=== PATIENT | female | born 1940 | race Caucasian/White ===

== ENCOUNTER 2022-11-14 21:31 | Inpatient (IN) | payer MEDICARE, BC ==
[2022-11-14] VITALS (47 sets, daily range): BP systolic 117; BP diastolic 65; PULSE 88; TEMP 97.3; O2SAT 94–100
[~2022-11-14] VITALS: Ht 170.2 cm; Wt 107.9 kg
[~2022-11-14 21:31] MED LIST: AMLODIPINE10 MG PO; ENALAPRIL20 MG PO; GLYBURIDE5 MG PO; ISOSORBIDE30 MG PO; LANTUS100 U/ML; LASIX40 MG PO; METFORMIN500 MG PO; NITROGLYCERIN0.4 MG SL; POTASSIUM20 MEQ PO; SIMVASTATIN40 MG PO; TOPROL XL100 MG PO
--- NOTE | 2022-11-14 22:31 | NUR ---
REPORT RECEIVED FROM DURGA FIERRO [place]. PT ALREADY IN ROUTE TO THIS ICU VIA EMS.
[2022-11-14] MEDS ORDERED: ELIQUIS 5MG PO (22:45)
[2022-11-14] MEDS ORDERED: SYNTHROID0.05 MG/TA PO (22:45)
[2022-11-14] MEDS ORDERED: BUMEX2 MG PO (22:45)
[2022-11-14] MEDS ORDERED: CELEBREX 200MG200 MG PO (22:45)
[2022-11-14] MEDS ORDERED: GLUCOTROL 5M5 MG/TAB PO (22:46)
[2022-11-14] MEDS ORDERED: AMBIEN 5MG TABLE5 MG PO (22:46)
[2022-11-14] MEDS ORDERED: PRINIVIL20 MG PO (22:46)
[2022-11-14] MEDS ORDERED: ALDACTONE 25MG25 M1 PO (22:46)
[2022-11-14] MEDS ORDERED: NOVOLOG FLEX100 U/ML SQ (22:47)
[2022-11-14] MEDS ORDERED: PRAVACHOL 40MG40 MG PO (22:47)
[2022-11-14] MEDS ORDERED: BASAGLAR K100 UNIT/1 SQ (22:47)
--- NOTE | 2022-11-14 23:13 | NUR ---
PT ARRIVED TO UNIT VIA EMS. PT ARRIVED ON NS 100ML/HR, ROOM AIR AND WITH SANCHEZ CATHETER IN PLACE FROM TRANSFERING FACILITY. PT ALERT TO SELF AND SITUATION, BUT NOT TO TIME OR PLACE. PT ABLE TO ANSWER SOME QUESTIONS, BUT MOSTLY A POOR HISTORIAN REPLYING TO MOST PMH QUESTIONS WITH "I DON'T KNOW". PT WITH RT PUPIL 3MM AND NON-REACTIVE TO LIGHT, LT PUPIL 2MM SLUGGISH REACTION TO LIGHT. PT WITH COCCYX AREA NON-BLANCHABLE. PT WITH C/O CHRONIC LOWER BACK PAIN 03/29. PT ORIENTED TO ROOM AND CALL LIGHT WITHIN REACH.
[2022-11-15] VITALS (1225 sets, daily range): BP systolic 92–146; BP diastolic 46–109; PULSE 71–98; TEMP 97.5–97.9; O2SAT 67–100
[2022-11-15 00:10] LABS: MUCOUS Present (NOT PRESENT); SQUAMOUS EPITHELIAL 0-2 /hpf (0-10); URINE BACTERIA Rare /hpf (NONE SEEN)
[2022-11-15 00:12] LABS: URINE APPEARANCE Clear (CLEAR/HAZY); URINE BLOOD TRACE-INTACT (NEGATIVE); URINE COLOR Yellow (YELLOW); URINE GLUCOSE Negative (NEGATIVE); URINE KETONE Negative (NEGATIVE); URINE NITRATE Negative (NEGATIVE); URINE PROTEIN(semi-quant) Negative (NEGATIVE); URINE UROBILINOGEN 0.2 E.U/dL (0.2-1.0)
[2022-11-15 00:31] LABS: COLLECTION METHOD CLEAN CATCH
[2022-11-15 00:38] LABS: OSMOLALITY-URINE random 345 Osm/kg (50-1200)
[2022-11-15 00:47] LABS: INR 1.9 (0.8-3.0); PROTHROMBIN TIME 21.4 SECONDS (9.7-12.8)
[2022-11-15 00:48] LABS: GASTROCCULT POSITIVE; pH GASTRIC CONTENTS 3
[2022-11-15 01:08] LABS: CALCIUM 10.2 mg/dL (8.4-10.2); PHOSPHOROUS 7.6 mg/dL (2.3-4.7)
[2022-11-15 01:18] LABS: CREATININE, serum 3.96 mg/dL (0.57-1.11); FRACTIONAL EXCRETION OF NA+ 4.82 %
[2022-11-15 01:25] LABS: TSH w REFLEX 1.669 uIU/mL (0.350-4.940)
[2022-11-15 01:27] LABS: TROPONIN-I 0.184 ng/mL (0.00-0.033)
[2022-11-15 04:18] LABS: BASO # 0.1 K/mm3 (0.0-0.2); BASO % 0.6 % (0.0-2.0); EOS # 0.1 K/mm3 (0.0-0.7); GRAN # 6.6 K/mm3 (1.4-6.5); GRAN % 82.1 % (42.2-75.2); HEMOGLOBIN 12.2 g/dl (12.5-16.0); LYMPH # 0.7 K/mm3 (1.2-3.4); LYMPH % 8.8 % (20.0-51.0); MEAN CELL VOLUME 76 fl (80.0-100.0); MEAN CORPUSCULAR HEMOGLOBIN 25 pg (27-31); MEAN CORPUSCULAR HGB CONC 33 g/dl (33.0-37.0); MEAN PLATELET VOLUME 10.6 fl (7.4-10.4); MONO # 0.6 K/mm3 (0.1-0.6); MONO % 7.2 % (1.7-9.3); PLATELET COUNT 191 K/mm3 (130-400); RED BLOOD COUNT 4.86 M/mm3 (4.10-5.30); REDCELL DISTRIBUTION WIDTH-CV 18.6 % (11.5-14.5)
[2022-11-15 04:47] LABS: CALCIUM 9.4 mg/dL (8.4-10.2); CREATININE, serum 3.86 mg/dL (0.57-1.11); POTASSIUM 5.4 mmol/L (3.5-4.5)
[2022-11-15 09:54] LABS: ANION GAP 17 mmol/L (7-16); CALCIUM 9.5 mg/dL (8.4-10.2); CHLORIDE 106 mmol/L (98-107); CREATININE, serum 3.83 mg/dL (0.57-1.11); POTASSIUM 5.4 mmol/L (3.5-4.5); SODIUM 137 mmol/L (136-145)
[2022-11-15 09:57] LABS: BLOOD UREA NITROGEN > 125 mg/dL (10-20); GLUCOSE 58 mg/dL (70-99)
[2022-11-15 09:58] LABS: CARBON DIOXIDE 14 mmol/L (23-31)
--- NOTE | 2022-11-15 11:38 | NUR ---
SW met with patient to complete intake. Patient resting up entering and daughter Ivon Lewis [phone] present at intake. Daughter is also appointed as DPOA/HC. Patient lives alone, utilizes a walker, independent with ADL's, and does not utilize HH service at this time. PCP is Dr. Moreno, pharmacy is [facility]. DC plan is to return home. Patient may benefit from HH services upon DC. SW will continue to follow. DC plan: SNF vs Home Health
--- NOTE | 2022-11-15 21:30 | NUR ---
PT HAD BEEN SLEEPING SOUNDLY IN BED UNTIL THIS TIME. NOW AWAKE AND ALERT TO SELF, PLACE, YEAR. REITERATED SITATION AND PLAN OF CARE FOR EVENING AND TOMORROW. CARDIAC WORKUP PLANNED FOR WEDNESDAY, INCLUDING ECHO AND STRESS TEST. PT WILL BE NPO AFTER MIDNIGHT. CURRENTLY DRINKING GRAPE JUICE. PT DENIES PAIN. HAS NO N/V, SOA, OR COMPLAINTS. WILL CONTINUE TO MONITOR.
[2022-11-16] VITALS (753 sets, daily range): BP systolic 95–135; BP diastolic 41–72; PULSE 65–94; TEMP 97.4–98; O2SAT 64–100
[2022-11-16 06:27] LABS: BASO # 0.1 K/mm3 (0.0-0.2); BASO % 0.7 % (0.0-2.0); EOS # 0.2 K/mm3 (0.0-0.7); GRAN # 5.1 K/mm3 (1.4-6.5); GRAN % 76.2 % (42.2-75.2); HEMOGLOBIN 11.7 g/dl (12.5-16.0); LYMPH # 0.9 K/mm3 (1.2-3.4); LYMPH % 12.9 % (20.0-51.0); MEAN CELL VOLUME 77 fl (80.0-100.0); MEAN CORPUSCULAR HEMOGLOBIN 25 pg (27-31); MEAN CORPUSCULAR HGB CONC 33 g/dl (33.0-37.0); MEAN PLATELET VOLUME 11.6 fl (7.4-10.4); MONO # 0.5 K/mm3 (0.1-0.6); MONO % 6.8 % (1.7-9.3); PLATELET COUNT 178 K/mm3 (130-400); RED BLOOD COUNT 4.64 M/mm3 (4.10-5.30); REDCELL DISTRIBUTION WIDTH-CV 18.9 % (11.5-14.5)
[2022-11-16 06:33] LABS: HEMATOCRIT 35.5 % (37.0-47.0)
[2022-11-16 06:49] LABS: CALCIUM 9.1 mg/dL (8.4-10.2); CREATININE, serum 3.48 mg/dL (0.57-1.11); POTASSIUM 5.3 mmol/L (3.5-4.5)
--- NOTE | 2022-11-16 07:26 | NUR ---
BEDSIDE REPORT RECEIVED FROM NIGHTSHIFT RNHARRIS. IV FLUID RATE VERIFIED. CALL LIGHT WITHIN PT REACH. WILL CONTINUE TO MONITOR.
--- NOTE | 2022-11-16 09:39 | NUR ---
RECEIVED REPORT FROM NIGHTSHIFT RNHARRIS. PATIENTS IV SITES AND FLUID RATE VERIFIED AT BEDSIDE REPORT. HEAD TO TOE ASSESSMENT COMPLETE. RENAL ULTRASOUND, VENOUS DOPPLER OF LEFT LOWER EXTREMITY, AND ECHO COMPLETED THIS MORNING. PATIENT TO UNDERGO LEXISCAN LATER THIS MORNING. PATIENT HAS 2 FAMILY MEMBERS VISITING THIS MORNING - ICU VISITING POLICY REVIEWED WITH BOTH FAMILY MEMBERS. PATIENT HAS NO COMPLAINTS OF PAIN THIS MORNING. CALL LIGHT WITHIN REACH. WILL CONTINUE TO MONITOR.
--- NOTE | 2022-11-16 11:14 | NUR ---
PATIENT OFF UNIT AT 1110 TO GET LEXISCAN COMPLETE. ACCOMPANIED BY NUCLEAR MEDICINE STAFF.
--- NOTE | 2022-11-16 12:45 | NUR ---
PATIENT RETURNED TO UNIT FROM [facility] ACCOMPANIED BY NUCLEAR MEDICINE STAFF. PATIENT HAD COMPLAINTS OF FEELING NAUSEOUS. MEDICATIONS ADMINISTERED PER EMAR. PATIENT ASSISTED WITH BED BATH, SHAMPOO CAP, AND CATHETER CARE. PATIENT BEDDING CHANGED. PATIENT REQUESTED TO SIT IN RECLINER AT THIS TIME. CALL LIGHT WITHIN REACH. WILL CONTINUE TO MONITOR.
--- NOTE | 2022-11-16 15:10 | NUR ---
Foil Cutter met with Patient at bedside to follow-up with her potential need for home health or half-way post discharge. SW provided [facility] approved providers for both and requested two choices to initiate referrals for services.
--- NOTE | 2022-11-16 19:27 | NUR ---
REPORT CALLED ON PATIENT TO MED/SURG FLOOR.
--- NOTE | 2022-11-17 01:34 | NUR ---
PATIENT ADMITTED TO THIS FLOOR IN ROOM 315 FROM THE ICU. SHE WAS ASSESSED AND GIVEN NIGHTLY MEDICATIONS. SHE STATES SHE WOULD LIKE A SLEEPING MEDICATION FOR TONIGHT, RIO VINCENT ORDERED FOR MELATONIN. GIVEN MELATONIN AND TYLENOL FOR BACK PAIN. CONTINUES ON ROCEPHIN FOR UTI. 1/2 NS RUNNING AT 200ML/HR, CREAT WAS 3.48 TODAY. LABS ORDERED FOR THE MORNING. NO DIARRHEA ON THIS FLOOR BUT DID HAVE A BOUT IN THE ICU WHICH WAS BLACK IN COLOR AND SOFT IN TEXTURE. SHE IS AOX4 AND PLEASANT TO SPEAK WITH. BED IN LOWEST POSITION. CALL LIGHT IN REACH.
[2022-11-17 04:06] VITALS: BP 127/54; PULSE 60; TEMP 97.5
[2022-11-17 07:09] LABS: CALCIUM 8.2 mg/dL (8.4-10.2); CREATININE, serum 2.71 mg/dL (0.57-1.11); POTASSIUM 5.1 mmol/L (3.5-4.5)
[2022-11-17 07:14] LABS: BASO # 0.1 K/mm3 (0.0-0.2); BASO % 0.7 % (0.0-2.0); EOS # 0.3 K/mm3 (0.0-0.7); EOS % 3.6 % (0.0-4.0); GRAN # 5.4 K/mm3 (1.4-6.5); GRAN % 79.3 % (42.2-75.2); HEMOGLOBIN 10.5 g/dl (12.5-16.0); LYMPH # 0.7 K/mm3 (1.2-3.4); LYMPH % 9.8 % (20.0-51.0); MEAN CELL VOLUME 76 fl (80.0-100.0); MEAN CORPUSCULAR HEMOGLOBIN 25 pg (27-31); MEAN CORPUSCULAR HGB CONC 33 g/dl (33.0-37.0); MEAN PLATELET VOLUME 11.2 fl (7.4-10.4); MONO # 0.4 K/mm3 (0.1-0.6); MONO % 6.3 % (1.7-9.3); PLATELET COUNT 149 K/mm3 (130-400); RED BLOOD COUNT 4.14 M/mm3 (4.10-5.30); REDCELL DISTRIBUTION WIDTH-CV 18.4 % (11.5-14.5)
[2022-11-17 07:15] LABS: HEMATOCRIT 31.6 % (37.0-47.0)
--- NOTE | 2022-11-17 07:22 | NUR ---
Shift assessment complete. Pt drowsey this AM. Oriented x4. Telementry on V paced, HR 76bpm. INT to RT forearm and periphrial line to LFT forearm w/ NS infusing @ 200ml/hr, no redness or drainage. coccyx red non blanchable w/ dressing CDI. Rogers catheter in place , urine clear pale yellow. Pt states LLE tender to touch, no redness or swelling. Pt declined any needs @ this time.
[2022-11-17 07:35] VITALS: BP 128/55; PULSE 63; TEMP 97.4
--- NOTE | 2022-11-17 09:05 | NUR ---
PATIENT IS AWAKE AND ALERT, RESTING IN BED WITH 2 FAMILY MEMBERS AT BEDSIDE. PATIENT DENEIS ANY NEEDS OR COMPLAITNS AT THIS TIME. SANCHEZ PATENT AND DRAINING. IVF INFUSING THROUGH LF IV.
[2022-11-17 10:58] VITALS: BP 149/51; PULSE 67; TEMP 97.6
[2022-11-17 15:49] VITALS: BP 126/42; PULSE 68; TEMP 97
--- NOTE | 2022-11-17 15:59 | NUR ---
Receiving And Processing Supervisor met with patient to follow up on discharge plan. Patient reviewed Medicare.gov list of SNFs and her preferences are 1) [facility] and 2) [facility]. STUART faxed referrals to both. [facility] left SW a message stating they will have to decline referral as they have no female beds available. STUART spoke with Dory at [facility] who advised they can accept tomorrow and are hoping for an 1130 apple picker if patient discharges. STUART contacted patient's daughter, Ivon who was at bedside for earlier discussion to update her on the above. Ivon is at bedside with patient now and advised they are agreeable to discharge to [facility]. Discharge Plan: [facility]F
--- NOTE | 2022-11-17 18:15 | NUR ---
PATIENT TELE REMOVED. BOTH IV WRAPPED FOR SHOWER. NITRO PATCH COVERED. PCT WITH PATIENT TO ASSIST.
--- NOTE | 2022-11-17 18:37 | NUR ---
PATIENT BACK IN BED FROM SHOWER. IVS, SANCHEZ AND NITRO PATCH ALL CLEAN DRY AND INTACT. TELE AND IV FLUID RECONNECTED. PATIENT RESTING IN BED, DENIES ANY NEEDS OR COMPLAINTS AT THIS TIME. CALL LIGHT WITH IN REACH BED ALARM ON.
[2022-11-17 19:46] VITALS: BP 125/53; PULSE 75; TEMP 97.7
[2022-11-18] VITALS: BP 102/49; PULSE 70; TEMP 97.6
--- NOTE | 2022-11-18 02:55 | NUR ---
PATIENT ASSESSED AND GIVEN NIGHTLY MEDICATIONS. 1/2 NS CONTINUES AT 100ML/HR. CREAT WAS 2.71 YESTERDAY. GETTING ROCEPHIN FOR UTI. POSSIBLE DISCHARGE TO [place] PER DAY SHIFT NURSE. CALL LIGHT IN REACH. BED IN LOWEST POSITION. NO BM'S THIS SHIFT THUS FAR.
[2022-11-18 03:45] VITALS: BP 135/44; PULSE 69; TEMP 98.2
[2022-11-18 07:01] LABS: BASO % 0.6 % (0.0-2.0); EOS # 0.2 K/mm3 (0.0-0.7); GRAN % 78.4 % (42.2-75.2); HEMOGLOBIN 10.2 g/dl (12.5-16.0); LYMPH # 0.7 K/mm3 (1.2-3.4); LYMPH % 10.7 % (20.0-51.0); MEAN CELL VOLUME 76 fl (80.0-100.0); MEAN CORPUSCULAR HEMOGLOBIN 26 pg (27-31); MEAN CORPUSCULAR HGB CONC 34 g/dl (33.0-37.0); MEAN PLATELET VOLUME 11.2 fl (7.4-10.4); MONO # 0.4 K/mm3 (0.1-0.6); MONO % 6.8 % (1.7-9.3); PLATELET COUNT 145 K/mm3 (130-400); RED BLOOD COUNT 3.96 M/mm3 (4.10-5.30); REDCELL DISTRIBUTION WIDTH-CV 18.5 % (11.5-14.5)
[2022-11-18 07:12] LABS: HEMATOCRIT 30.1 % (37.0-47.0)
[2022-11-18 07:16] LABS: CALCIUM 8.7 mg/dL (8.4-10.2); CREATININE, serum 2.33 mg/dL (0.57-1.11); POTASSIUM 4.9 mmol/L (3.5-4.5)
[2022-11-18 07:38] VITALS: BP 134/54; PULSE 79; TEMP 97.6
--- NOTE | 2022-11-18 07:40 | NUR ---
Shift assessment complete. Pt alert watching TV. Orianted x4. Telemaentry on V-paced HR 78bpm. BP 134/54 primary nurse notified. Nitro patch to the left upper chest. INT to the RT forearm and peripherial line to the LFT forearm infusing 1/2 NS @ 100ml/hr, no redness, swelling, or drainage. Rogers catheter in place, urine pale yellow and clear. Pt declines any needs at this time.
[2022-11-18] MEDS ORDERED: PRAVACHOL 40MG40 MG PO (08:18)
[2022-11-18] MEDS ORDERED: SYNTHROID0.05 MG/TA PO (08:18)
[2022-11-18] MEDS ORDERED: MELATIN 3 MG-11 TAB PO (08:19)
[2022-11-18] MEDS ORDERED: ASPIRIN E.C. 8181 MG PO (08:20)
[2022-11-18] MEDS ORDERED: SODIUM BICARBO650 MG PO (08:28)
[2022-11-18] MEDS ORDERED: NOVOLOG 100U100 U/M1 SQ (08:30)
[2022-11-18] MEDS ORDERED: AMBIEN 5MG TABLE5 MG PO (08:31)
[2022-11-18 11:12] VITALS: BP 113/53; PULSE 71; TEMP 97.5
--- NOTE | 2022-11-18 15:28 | NUR ---
Senior Energy Market Coordinator notified by Hospitalist that patient is ready for discharge to [facility]. SW spoke with Dory at [facility] and transport was set up for 1130. SW met with patient and patient's daughter, Ivon who is at bedside. SW presented IM form to patient who verbalized understanding and provided signature. SW placed form in chart and provided copy to patient. STUART was then later notified that Nephrology would like to keep patient another day. STUART updated [facility] and faxed clinical updates. STUART also updated patient and family. Discharge Plan: [facility]
[2022-11-18 16:31] VITALS: BP 126/52; PULSE 68; TEMP 97.9
[2022-11-18 20:00] VITALS: BP 131/47; PULSE 63; TEMP 97.4
[2022-11-18 21:10] LABS: ALBUMIN 2.7 gm/dL (3.4-4.8); CALCIUM 8.8 mg/dL (8.4-10.2); CREATININE, serum 2.33 mg/dL (0.57-1.11); PHOSPHOROUS 3.6 mg/dL (2.3-4.7); POTASSIUM 4.8 mmol/L (3.5-4.5)
--- NOTE | 2022-11-18 22:13 | NUR ---
THE PATIENT IS HAVING A ROUGH NIGHT. SHE STATES SHE IS VERY READY TO GO HOME AND IS TIRED OF BEING HERE. SHE STATES SHE DOESN'T WANT TO BE "POKED" ANYMORE. SHE DID HAVE LABS DRAWN THIS EVENING PER DR. WASHINGTON, HE WAS UPDATED ON THE RESULTS OF THOSE SOON THEY RESULTED. HE STATES THAT WITH THE RESULTS THIS BMP, THAT SHE SHOULD BE GOOD TO LEAVE TOMORROW. WILL ALSO INFORM KHALIF HAYES OF THIS DISCUSSION. NO OTHER CONCERNS AT THIS TIME.
[2022-11-19 04:53] VITALS: BP 122/59; PULSE 101; TEMP 97.6
[2022-11-19 07:59] VITALS: BP 112/84; PULSE 67; TEMP 97.5
[2022-11-19] MEDS ORDERED: APRESOLINE 25MG25 MG PO (08:55)
[2022-11-19] MEDS ORDERED: NITRO-DUR0.4 MG/PAT TD (08:55)
[2022-11-19] MEDS ORDERED: PROTONIX 40MG T40 MG PO (08:59)
[2022-11-19 10:29] VITALS: BP 112/84; PULSE 67; TEMP 97.5
--- NOTE | 2022-11-19 10:54 | NUR ---
Hospitalist notified Technical Translator that patient is ready for discharge today and Nehpro[facility]y has signed off. STUART faxed discharge orders to Dory at [facility]. Transport time set for 1030. STUART provided time to patient and family who are at bedside. Discharge Plan: [facility]
--- NOTE | 2022-11-19 11:31 | NUR ---
SHIFT ASSESSMENT COMPLETED AND MORNING MEDICATIONS ADMINISTERED PER ORDER. PATIENT IS ALERT AND ORIENTED X4. DENIES PAIN. LUNGS CTA. AMBULATES INDEPENDENTLY WITH WALKER. SANCHEZ REMOVED PRIOR TO DISCHARGE, PATIENT ABLE TO VOID POST SANCHEZ REMOVAL. DENIES ANY NEEDS. IVS TO LEFT AND RIGHT FOREARM REMOVED WITH CATHETERS INTACT, NO BLEEDING NOTED, GAUZE DRESSING APPLIED. TRANSFER SUMMARY PRINTED AND SENT WITH PATIENT. REPORT CALLED TO JUS NURSE AT [facility], WHO DENIES FURTHER QUESTIONS. PATIENT ESCORTED OUT BY SCHNEIDER NURSING STAFF.
== END 2022-11-19 10:45 | DRG 682 ==
LOC: IMCU 21:31 → ICU 23:05 → MEDICAL 11-16 19:23
PROVIDERS: Internal Medicine Nephrology; Nurse Practitioner Family; Physician Assistant; Student in an Organized Health Care Education/Training Program; ADMIT Internal Medicine
DX: N17.9 Acute kidney failure, unspecified (principal); G93.41 Metabolic encephalopathy; I21.4 Non-ST elevation (NSTEMI) myocardial infarction; E87.1 Hypo-osmolality and hyponatremia; E87.20 Acidosis, unspecified; N39.0 Urinary tract infection, site not specified; Z66 Do not resuscitate; I13.0 Hypertensive heart and chronic kidney disease with heart failure and stage 1 through stage 4 chronic kidney disease, or unspecified chronic kidney disease; I50.22 Chronic systolic (congestive) heart failure; I42.9 Cardiomyopathy, unspecified; E87.5 Hyperkalemia; I27.20 Pulmonary hypertension, unspecified; I25.10 Atherosclerotic heart disease of native coronary artery without angina pectoris; I44.1 Atrioventricular block, second degree; I48.91 Unspecified atrial fibrillation; E78.5 Hyperlipidemia, unspecified; E03.9 Hypothyroidism, unspecified; E11.22 Type 2 diabetes mellitus with diabetic chronic kidney disease; N18.9 Chronic kidney disease, unspecified; I95.9 Hypotension, unspecified; I44.7 Left bundle-branch block, unspecified; M54.50 Low back pain, unspecified; M51.36 Other intervertebral disc degeneration, lumbar region; L89.151 Pressure ulcer of sacral region, stage 1; M19.90 Unspecified osteoarthritis, unspecified site; K52.9 Noninfective gastroenteritis and colitis, unspecified; E21.3 Hyperparathyroidism, unspecified; K57.30 Diverticulosis of large intestine without perforation or abscess without bleeding; K44.9 Diaphragmatic hernia without obstruction or gangrene; I08.1 Rheumatic disorders of both mitral and tricuspid valves; D63.8 Anemia in other chronic diseases classified elsewhere; Z79.01 Long term (current) use of anticoagulants; Z95.1 Presence of aortocoronary bypass graft; Z90.89 Acquired absence of other organs; Z95.0 Presence of cardiac pacemaker; Z90.49 Acquired absence of other specified parts of digestive tract; Z79.890 Hormone replacement therapy; Z79.4 Long term (current) use of insulin; Z88.5 Allergy status to narcotic agent
CPT/HCPCS: A9270; A9500; C9113; J0696; J1815; J2550; J2785; J3010; J7030